=== PATIENT | female | born 1945 | race Caucasian/White ===

== ENCOUNTER 2019-05-30 11:19 | Day surgery (SDC) | payer MEDICARE, BC ==
[2019-05-30] VITALS (16 sets, daily range): BP systolic 100–129; BP diastolic 50–71
[~2019-05-30] VITALS: Ht 152.4 cm; Wt 84.1 kg
[2019-05-30] MEDS ORDERED: normal saline 1000ml 1,000 ML IV SCH (11:50)
[2019-05-30 12:24] LABS: BASOPHILS # (AUTO) 0.1 X10'3 (0-0.2); BASOPHILS % (AUTO) 1.5 % (0-1); EOSINOPHILS # (AUTO) 0.6 X10'3 (0-0.9); EOSINOPHILS % (AUTO) 8.9 % (0-6); HEMOGLOBIN 10.9 g/dl (12.0-16.0); LYMPHOCYTES # (AUTO) 1.3 X10'3 (1.1-4.8); LYMPHOCYTES % (AUTO) 20.2 % (21-51); MEAN CORPUSCULAR HEMOGLOBIN 28.9 PG (27.0-31.0); MEAN CORPUSCULAR HGB CONC 33.2 g/dL (33.0-36.5); MEAN CORPUSCULAR VOLUME 87.2 FL (78-98); MEAN PLATELET VOLUME 8.2 FL (7.4-10.4); MONOCYTES # (AUTO) 0.5 X10'3 (0-0.9); MONOCYTES % (AUTO) 7.6 % (2-12); NEUTROPHILS # (AUTO) 4.1 X10'3 (1.8-7.7); NEUTROPHILS % (AUTO) 61.8 % (42-75); PLATELET COUNT 241 X10'3 (140-440); RED BLOOD COUNT 3.79 X10'6 (4.20-5.60); RED CELL DISTRIBUTION WIDTH 14.2 % (11.5-14.5); WHITE BLOOD COUNT 6.7 X10'3 (4.5-11.0)
[2019-05-30] MEDS ORDERED: PARO40TA PO (12:28)
[2019-05-30] MEDS ORDERED: PREG50CA PO (12:28)
[2019-05-30] MEDS ORDERED: CHOL500049 PO (12:28)
[2019-05-30] MEDS ORDERED: AMLO10TA4 PO (12:28)
[2019-05-30] MEDS ORDERED: AZIL1TAB2 PO (12:28)
[2019-05-30] MEDS ORDERED: ANAS1TAB10 PO (12:28)
[2019-05-30] MEDS ORDERED: LEVO100T PO (12:28)
[2019-05-30 12:40] LABS: ALBUMIN 3.3 G/DL (3.4-5.0); ANION GAP 9 (8-16); BLOOD UREA NITROGEN 24 MG/DL (7-18); BUN/CREATININE RATIO 18.3 (6.6-38.0); CALCIUM 9.9 MG/DL (8.5-10.1); CHLORIDE 102 MMOL/L (99-107); CREATININE 1.31 MG/DL (0.40-0.90); GLUCOSE 86 MG/DL (70-104); POTASSIUM 4.1 MMOL/L (3.5-5.1); SODIUM 137 MMOL/L (135-145); TOTAL CARBON DIOXIDE 26.2 MMOL/L (24-32); eGFR 40 ML/MIN
[2019-05-30] MEDS ORDERED: fentaNYL/PF 50MCG/1 ML 2ML syringe IV PRN (13:10)
[2019-05-30] MEDS ORDERED: midazolam 2 mg/2 ml injection IV PRN (13:10)
[2019-05-30] MEDS ORDERED: LIDOcaine 1%/PF 5ML 10 MG/ML VIAL SQ ONE (13:10)
[2019-05-30] MEDS ORDERED: fentaNYL/PF 50MCG/1 ML 2ML syringe ONE ×2 (13:15→13:19)
[2019-05-30] MEDS ORDERED: midazolam 2 mg/2 ml injection ONE (13:15)
--- NOTE | 2019-05-30 14:38 | NUR ---
1410- Pt brought back from procedure awake and alert, denies pain, VSS. Pt received Fentanyl 100mcg and Versed 1mg IV.
--- NOTE | 2019-05-30 15:21 | NUR ---
pt up to bathroom to void, stable on feet. Friend at bedside.
== END 2019-05-30 16:30 | disposition home or self-care (01) ==
LOC: SSTAY O 11:19
PROVIDERS: ATTEND Radiology Diagnostic Radiology
DX: C79.89 Secondary malignant neoplasm of other specified sites (principal); C50.911 Malignant neoplasm of unspecified site of right female breast; E03.9 Hypothyroidism, unspecified; I10 Essential (primary) hypertension; Z90.11 Acquired absence of right breast and nipple; Z87.891 Personal history of nicotine dependence; Z79.899 Other long term (current) drug therapy
CPT/HCPCS: 20206; 36415; 71045; 76942; 77012; 80048; 85025; 85610; J2250; J3010; J7030; 32405; 88173; 88305; 88342; 99152; 99153